=== PATIENT | male | born 1930 | race Caucasian/White ===

== ENCOUNTER → 2017-01-20 | Outpatient (CLI) | payer MEDICARE, BC ==
[~2017-01-20] MED LIST: ALBU1.25 NEB; ASPI-496 PO; ATOR40TA78 PO; BUDE10.2 INH; CEFD300C37 PO; DIGO0.25 PO; DIGO125T PO; DOXY100C2 PO; DOXY100T PO; DOXY50CA42 PO; ENAL2.5T32 PO; OMNIPAQUE 350 MG/ML, 100ML BOTTLE ONE; PRED10TA BC; PRED20TA PO; PRED5TAB PO; TAMS0.4C2 PO; TIOT18CA INH; WARF2TAB PO; WARF5TAB PO; WARF5TAB7 PO
== END | disposition home or self-care (01) ==
LOC: CFH 12:32
PROVIDERS: ATTEND Family Medicine
DX: I71.4 Abdominal aortic aneurysm, without rupture (principal); I72.3 Aneurysm of iliac artery; N28.1 Cyst of kidney, acquired; J44.9 Chronic obstructive pulmonary disease, unspecified
CPT/HCPCS: 74177; 82565; Q9967

== ENCOUNTER 2017-03-01 13:16 | Emergency (ER) | payer MEDICARE, BC ==
[~2017-03-01] VITALS: Ht 188 cm; Wt 67.2 kg
[~2017-03-01 13:16] MED LIST changes: -OMNIPAQUE 350 MG/ML, 100ML BOTTLE ONE
[2017-03-01 13:20] VITALS: BP 123/88
[2017-03-01] MEDS ORDERED: DIPH,PERTUSS(ACELL),TET VAC/PF 0.5 ML IM-VACC ONE ×2 (14:30→15:29)
[2017-03-01] MEDS ORDERED: BACITRACIN ZINC OINT 500U/GM, 0.9 GM ONE (14:36)
== END 2017-03-01 16:06 | disposition home or self-care (01) ==
LOC: ED 14:45
DX: S81.802A Unspecified open wound, left lower leg, initial encounter (principal); K21.9 Gastro-esophageal reflux disease without esophagitis; J44.9 Chronic obstructive pulmonary disease, unspecified; E78.5 Hyperlipidemia, unspecified; Z86.73 Personal history of transient ischemic attack (TIA), and cerebral infarction without residual deficits; Z88.5 Allergy status to narcotic agent; Z87.891 Personal history of nicotine dependence; W45.8XXA Other foreign body or object entering through skin, initial encounter; Y93.89 Activity, other specified; Y92.091 Bathroom in other non-institutional residence as the place of occurrence of the external cause; Y99.9 Unspecified external cause status
CPT/HCPCS: 90471; 90715

== ENCOUNTER 2017-03-07 11:34 | Emergency (ER) | payer MEDICARE, BC ==
[~2017-03-07] VITALS: Ht 188 cm; Wt 67.2 kg
[2017-03-07 11:35] VITALS: BP 119/78
[2017-03-07] MEDS ORDERED: BACITRACIN ZINC OINT 500U/GM, 0.9 GM ONE (12:26)
== END 2017-03-07 12:32 | disposition home or self-care (01) ==
LOC: ED 11:50
DX: S81.812D Laceration without foreign body, left lower leg, subsequent encounter (principal); J44.9 Chronic obstructive pulmonary disease, unspecified; K21.9 Gastro-esophageal reflux disease without esophagitis; Z87.891 Personal history of nicotine dependence; Z86.73 Personal history of transient ischemic attack (TIA), and cerebral infarction without residual deficits; X58.XXXD Exposure to other specified factors, subsequent encounter; Y92.89 Other specified places as the place of occurrence of the external cause; Y99.8 Other external cause status
CPT/HCPCS: 99283

== ENCOUNTER 2017-06-09 10:32 | Emergency (ER) | payer MEDICARE, BC ==
[~2017-06-09] VITALS: Ht 185.4 cm; Wt 68.2 kg
[2017-06-09] MEDS ORDERED: IPRA3AMP INH (11:41)
[2017-06-09] MEDS ORDERED: CHOL100012 PO (11:41)
[2017-06-09] MEDS ORDERED: BECL8.7A6 INH (11:41)
[2017-06-09] MEDS ORDERED: TIOT18CA INH (11:41)
[2017-06-09] MEDS ORDERED: SODIUM CHLORIDE FLUSH 10ML SYR IVF ONE (12:00)
[2017-06-09 12:25] LABS: HEMATOCRIT 39.7 % (39.2-51.8); HEMOGLOBIN 13.5 g/dL (13.7-18.0); WHITE BLOOD COUNT 4.8 x10^3/uL (3.4-10)
[2017-06-09 12:36] LABS: BLOOD UREA NITROGEN 37 mg/dL (7-18)
[2017-06-09 12:42] LABS: ASPARTATE AMINO TRANSFERASE 26 U/L (15-37)
[2017-06-09 12:43] LABS: IS PT STATUS REG ER OR PRE ER? YES
[2017-06-09 14:54] VITALS: BP 122/73
== END 2017-06-09 14:56 | disposition home or self-care (01) ==
LOC: ED 11:55
DX: R04.2 Hemoptysis (principal); K21.9 Gastro-esophageal reflux disease without esophagitis; E78.5 Hyperlipidemia, unspecified; J44.9 Chronic obstructive pulmonary disease, unspecified; Z86.73 Personal history of transient ischemic attack (TIA), and cerebral infarction without residual deficits; Z87.891 Personal history of nicotine dependence
CPT/HCPCS: 36415; 71020; 80053; 84484; 85025; 85610; 85730; 93005; 99285

== ENCOUNTER 2017-06-16 12:08 | Inpatient (IN) | payer MEDICARE, BC ==
[~2017-06-16] VITALS: Ht 188 cm; Wt 75.0 kg
[~2017-06-16 12:08] MED LIST changes: +BECL8.7A6 INH; +CHOL100012 PO; +IPRA3AMP INH
[2017-06-16] MEDS ORDERED: SODIUM CHLORIDE FLUSH 10ML SYR IVF ONE ×2 (13:00→15:00)
[2017-06-16 13:05] LABS: HEMATOCRIT 36.2 % (39.2-51.8); WHITE BLOOD COUNT 6.4 x10^3/uL (3.4-10)
[2017-06-16 13:17] LABS: ASPARTATE AMINO TRANSFERASE 29 U/L (15-37); BLOOD UREA NITROGEN 25 mg/dL (7-18)
[2017-06-16] MEDS ORDERED: PHYTONADIONE 10 MG in SODIUM CHLORIDE 0.9% 50 ML IV ONE (15:00)
[2017-06-16] MEDS ORDERED: CEFTRIAXONE PMX 2GM/50ML 50 ML IV SCH (15:00)
[2017-06-16] MEDS ORDERED: AZITHROMYCIN 500 MG in SODIUM CHLORIDE 0.9% 250 ML IV ONE (15:00)
[2017-06-16] MEDS ORDERED: methylPREDNISolone SOD SUCC 125 MG/2 ML IVPush ONE (15:00)
[2017-06-16] MEDS ORDERED: ALBUTEROL/IPRATROPIUM 2.5MG/0.5MG, 3 ML NPPB ONE (15:00)
[2017-06-16] MEDS ORDERED: methylPREDNISolone SOD SUCC 125 MG/2 ML ONE (15:27)
[2017-06-16] MEDS ORDERED: CEFTRIAXONE PMX 2GM/50ML 50 ML ONE (15:27)
[2017-06-16 16:04] VITALS: BP 124/72
[2017-06-16] MEDS ORDERED: ONDANSETRON ODT 4 MG PO PRN (18:00)
[2017-06-16] MEDS ORDERED: ONDANSETRON 2MG/ML, 2ML IVPush PRN (18:00)
[2017-06-16] MEDS: ALBUTEROL SULFATE 2.5 MG/3 ML NPPB SCH ×2 (18:30→21:00)
[2017-06-16 19:20] VITALS: BP 116/66
[2017-06-16] MEDS: SODIUM CHLORIDE 0.9% 1,000 ML IV SCH (20:27)
[2017-06-16] MEDS: TAMSULOSIN 0.4 MG CAP.ER.24H HOMEMEDPO SCH (21:00)
[2017-06-16] MEDS ORDERED: ATORVASTATIN 40 MG TABLET PO SCH (21:00)
[2017-06-16] MEDS: ATORVASTATIN 40 MG TABLET HOMEMEDPO SCH (21:00)
[2017-06-16] MEDS: CHOLECALCIFEROL 1,000 UNIT TABLET PO SCH (21:35)
[2017-06-17 00:38] VITALS: BP 103/59
[2017-06-17 05:23] LABS: ASPARTATE AMINO TRANSFERASE 21 U/L (15-37); BLOOD UREA NITROGEN 32 mg/dL (7-18)
[2017-06-17 05:24] LABS: HEMATOCRIT 28.1 % (39.2-51.8); HEMOGLOBIN 9.5 g/dL (13.7-18.0)
[2017-06-17] MEDS: SODIUM CHLORIDE 0.9% 1,000 ML IV SCH ×3 (05:57→23:36)
[2017-06-17] MEDS: ALBUTEROL SULFATE 2.5 MG/3 ML NPPB SCH ×4 (06:00→14:25)
[2017-06-17 07:41] VITALS: BP 117/56
[2017-06-17] MEDS ORDERED: FLUTICASONE FUROATE 100MCG/INH INH SCH (09:00)
[2017-06-17 12:13] VITALS: BP 101/56
[2017-06-17 20:12] VITALS: BP 94/49
[2017-06-17] MEDS: DIGOXIN 0.125 MG TABLET HOMEMEDPO SCH (21:00)
[2017-06-17] MEDS ORDERED: ASPIRIN 81 MG TABLET EC PO SCH (21:00)
[2017-06-17] MEDS: ATORVASTATIN 40 MG TABLET HOMEMEDPO SCH (21:00)
[2017-06-17] MEDS: SPIRIVA INH SCH (21:00)
[2017-06-17] MEDS ORDERED: TAMSULOSIN 0.4 MG CAP.ER.24H PO SCH (21:00)
[2017-06-17] MEDS: TAMSULOSIN 0.4 MG CAP.ER.24H HOMEMEDPO SCH (21:00)
[2017-06-17] MEDS: CHOLECALCIFEROL 1,000 UNIT TABLET PO SCH (21:26)
[2017-06-17] MEDS: DOXYCYCLINE 100MG TABLET PO SCH (21:27)
[2017-06-17 21:31] VITALS: BP 100/51
[2017-06-17] MEDS ORDERED: AZITHROMYCIN 500 MG TABLET PO SCH (22:00)
[2017-06-17] MEDS ORDERED: DOCUSATE 100 MG CAPSULE PO PRN (22:30)
[2017-06-18 02:07] VITALS: BP 112/56
[2017-06-18 06:19] LABS: HEMATOCRIT 28.6 % (39.2-51.8); HEMOGLOBIN 9.8 g/dL (13.7-18.0)
[2017-06-18 06:32] LABS: BLOOD UREA NITROGEN 33 mg/dL (7-18)
[2017-06-18] MEDS ORDERED: ALBUTEROL SULFATE 2.5 MG/3 ML NPPB SCH (07:00)
[2017-06-18 07:43] VITALS: BP 125/69
[2017-06-18] MEDS: SODIUM CHLORIDE 0.9% 1,000 ML IV SCH ×2 (09:25→21:05)
[2017-06-18] MEDS: DOXYCYCLINE 100MG TABLET PO SCH ×2 (09:25→21:06)
[2017-06-18] MEDS ORDERED: ALBUTEROL SULFATE 2.5 MG/3 ML ONE (13:58)
[2017-06-18] MEDS: ALBUTEROL SULFATE 2.5 MG/3 ML NPPB SCH ×2 (14:01→20:19)
[2017-06-18 14:16] VITALS: BP 107/62
[2017-06-18 20:00] VITALS: BP 107/61
[2017-06-18] MEDS: TAMSULOSIN 0.4 MG CAP.ER.24H HOMEMEDPO SCH (21:00)
[2017-06-18] MEDS: SPIRIVA INH SCH (21:00)
[2017-06-18] MEDS: DIGOXIN 0.125 MG TABLET HOMEMEDPO SCH (21:00)
[2017-06-18] MEDS: ATORVASTATIN 40 MG TABLET HOMEMEDPO SCH (21:00)
[2017-06-18] MEDS: CHOLECALCIFEROL 1,000 UNIT TABLET PO SCH (21:06)
[2017-06-19 02:00] VITALS: BP 118/67
[2017-06-19] MEDS: SODIUM CHLORIDE 0.9% 1,000 ML IV SCH ×2 (05:25→15:52)
[2017-06-19] MEDS: ALBUTEROL SULFATE 2.5 MG/3 ML NPPB SCH ×3 (06:56→19:29)
[2017-06-19 07:59] VITALS: BP 120/68
[2017-06-19] MEDS: DOXYCYCLINE 100MG TABLET PO SCH ×2 (08:59→22:08)
[2017-06-19] MEDS: DIGOXIN 0.125 MG TABLET HOMEMEDPO SCH (08:59)
[2017-06-19 12:39] VITALS: BP 128/74
[2017-06-19 20:14] VITALS: BP 107/55
[2017-06-19] MEDS: CHOLECALCIFEROL 1,000 UNIT TABLET PO SCH (22:08)
[2017-06-19] MEDS: TAMSULOSIN 0.4 MG CAP.ER.24H HOMEMEDPO SCH (22:11)
[2017-06-19] MEDS: ATORVASTATIN 40 MG TABLET HOMEMEDPO SCH (22:15)
[2017-06-19] MEDS: SPIRIVA INH SCH (22:17)
[2017-06-20 00:52] VITALS: BP 114/58
[2017-06-20] MEDS: SODIUM CHLORIDE 0.9% 1,000 ML IV SCH ×3 (02:56→22:32)
[2017-06-20] MEDS: ALBUTEROL SULFATE 2.5 MG/3 ML NPPB SCH ×3 (06:50→20:40)
[2017-06-20 07:49] VITALS: BP 112/57
[2017-06-20] MEDS: DIGOXIN 0.125 MG TABLET HOMEMEDPO SCH (09:00)
[2017-06-20] MEDS: DOXYCYCLINE 100MG TABLET PO SCH ×2 (09:14→22:34)
[2017-06-20 14:26] VITALS: BP 116/62
[2017-06-20] MEDS: ACETAMINOPHEN 325 MG TABLET PO PRN (15:01)
[2017-06-20 19:46] VITALS: BP 120/65
[2017-06-20] MEDS: GUAIFENESIN ER 600 MG TABLET PO SCH (22:33)
[2017-06-20] MEDS: CHOLECALCIFEROL 1,000 UNIT TABLET PO SCH (22:33)
[2017-06-20] MEDS: DIGOXIN 0.125 MG TABLET PO SCH (22:34)
[2017-06-20] MEDS: TAMSULOSIN 0.4 MG CAP.ER.24H HOMEMEDPO SCH (22:35)
[2017-06-20] MEDS: ATORVASTATIN 40 MG TABLET HOMEMEDPO SCH (22:36)
[2017-06-20] MEDS: SPIRIVA INH SCH (22:37)
[2017-06-21] MEDS: ACETAMINOPHEN 325 MG TABLET PO PRN (00:49)
[2017-06-21 02:00] VITALS: BP 115/61
[2017-06-21 05:16] LABS: HEMATOCRIT 27.6 % (39.2-51.8); HEMOGLOBIN 9.3 g/dL (13.7-18.0); WHITE BLOOD COUNT 3.9 x10^3/uL (3.4-10)
[2017-06-21 05:29] LABS: BLOOD UREA NITROGEN 21 mg/dL (7-18)
[2017-06-21 07:06] VITALS: BP 124/71
[2017-06-21] MEDS: SODIUM CHLORIDE 0.9% 1,000 ML IV SCH (08:31)
[2017-06-21] MEDS: DOXYCYCLINE 100MG TABLET PO SCH (08:31)
[2017-06-21] MEDS: GUAIFENESIN ER 600 MG TABLET PO SCH ×2 (08:31→21:34)
[2017-06-21] MEDS: ALBUTEROL SULFATE 2.5 MG/3 ML NPPB SCH ×3 (09:00→21:00)
[2017-06-21] MEDS: AMOXICILLIN/CLAV 875-125MG TABLET PO SCH ×2 (12:58→23:18)
[2017-06-21 14:33] VITALS: BP 104/61
[2017-06-21] MEDS ORDERED: WARFARIN 5 MG TABLET PO-COUM ONE (18:00)
[2017-06-21 20:00] VITALS: BP 105/65
[2017-06-21] MEDS: DIGOXIN 0.125 MG TABLET PO SCH (21:00)
[2017-06-21] MEDS: TAMSULOSIN 0.4 MG CAP.ER.24H HOMEMEDPO SCH (21:33)
[2017-06-21] MEDS: ATORVASTATIN 40 MG TABLET HOMEMEDPO SCH (21:34)
[2017-06-21] MEDS: CHOLECALCIFEROL 1,000 UNIT TABLET PO SCH (21:34)
[2017-06-21] MEDS: SPIRIVA INH SCH (21:35)
[2017-06-22] MEDS: ACETAMINOPHEN 325 MG TABLET PO PRN (01:52)
[2017-06-22 02:00] VITALS: BP 105/58
[2017-06-22 05:35] LABS: HEMATOCRIT 27.5 % (39.2-51.8); HEMOGLOBIN 9.4 g/dL (13.7-18.0); WHITE BLOOD COUNT 4.3 x10^3/uL (3.4-10)
[2017-06-22] MEDS: ALBUTEROL SULFATE 2.5 MG/3 ML NPPB SCH (07:42)
[2017-06-22] MEDS: GUAIFENESIN ER 600 MG TABLET PO SCH (08:10)
[2017-06-22 08:18] VITALS: BP 118/67
[2017-06-22] MEDS ORDERED: AMOX1TAB12 PO (11:19)
[2017-06-22] MEDS ORDERED: FUROSEMIDE 20 MG TABLET PO ONE (11:30)
[2017-06-22] MEDS ORDERED: FUROSEMIDE 20 MG/2 ML IV ONE (11:30)
[2017-06-22] MEDS ORDERED: ENOX60SY4 SC (11:45)
[2017-06-22] MEDS ORDERED: ENOXAPARIN 80 MG/0.8 ML SQ SCH (12:00)
[2017-06-22] MEDS ORDERED: WARFARIN 5 MG TABLET PO-COUM ONE (18:00)
== END 2017-06-22 12:50 | disposition home or self-care (01) | DRG 177 ==
LOC: ED 14:52 → EDIP 16:31 → 4WST 17:50
PROVIDERS: ADMIT Internal Medicine; ATTEND Internal Medicine
PROC: 30233K1 Transfusion of Nonautologous Frozen Plasma into Peripheral Vein, Percutaneous Approach (ICD-10-PCS; principal; 2017-06-16)
DX: J69.0 Pneumonitis due to inhalation of food and vomit (principal); E43 Unspecified severe protein-calorie malnutrition; J96.20 Acute and chronic respiratory failure, unspecified whether with hypoxia or hypercapnia; D68.59 Other primary thrombophilia; D80.3 Selective deficiency of immunoglobulin G [IgG] subclasses; I48.1 Persistent atrial fibrillation; I13.0 Hypertensive heart and chronic kidney disease with heart failure and stage 1 through stage 4 chronic kidney disease, or unspecified chronic kidney disease; I50.32 Chronic diastolic (congestive) heart failure; J44.0 Chronic obstructive pulmonary disease with (acute) lower respiratory infection; J44.1 Chronic obstructive pulmonary disease with (acute) exacerbation; E78.5 Hyperlipidemia, unspecified; K21.9 Gastro-esophageal reflux disease without esophagitis; N18.3 Chronic kidney disease, stage 3 (moderate); J15.9 Unspecified bacterial pneumonia; N40.0 Benign prostatic hyperplasia without lower urinary tract symptoms; I34.0 Nonrheumatic mitral (valve) insufficiency; I35.0 Nonrheumatic aortic (valve) stenosis; Z79.01 Long term (current) use of anticoagulants; Z80.6 Family history of leukemia; Z85.828 Personal history of other malignant neoplasm of skin; Z86.73 Personal history of transient ischemic attack (TIA), and cerebral infarction without residual deficits; Z87.891 Personal history of nicotine dependence; Z99.81 Dependence on supplemental oxygen; Z87.01 Personal history of pneumonia (recurrent); Z68.21 Body mass index [BMI] 21.0-21.9, adult; Z90.49 Acquired absence of other specified parts of digestive tract; Z90.89 Acquired absence of other organs; Z98.42 Cataract extraction status, left eye; Z98.41 Cataract extraction status, right eye; Z88.5 Allergy status to narcotic agent
CPT/HCPCS: 36415; 36430; 70551; 71010; 71250; 74230; 80048; 80053; 80162; 81001; 82962; 83516; 83519; 83605; 83735; 84100; 84145; 85025; 85610; 86850; 86900; 87040; 87070; 87086; 87205; 93005; 93306; 94640; 96365; 96375; J0456; J0696; J1650; J3430; J7613; J1940; J2930; J7030; J7050; P9017

== ENCOUNTER 2017-06-30 13:16 | Inpatient (IN) | payer MEDICARE, BC ==
[2017-06-30] VITALS (18 sets, daily range): BP systolic 98–120; BP diastolic 43–68
[~2017-06-30] VITALS: Ht 185.4 cm; Wt 60.2 kg
[~2017-06-30 13:16] MED LIST changes: +AMOX1TAB12 PO; +ENOX60SY4 SC
[2017-06-30] MEDS ORDERED: SODIUM CHLORIDE FLUSH 10ML SYR IVF ONE (13:30)
[2017-06-30] MEDS ORDERED: PLEASE ENTER HEIGHT AND WEIGHT MC SCH (14:00)
[2017-06-30 14:15] LABS: BLOOD UREA NITROGEN 34 mg/dL (7-18)
[2017-06-30 14:24] LABS: HEMOGLOBIN 7.4 g/dL (13.7-18.0); WHITE BLOOD COUNT 5.4 x10^3/uL (3.4-10)
[2017-06-30 14:26] LABS: HEMATOCRIT 22.3 % (39.2-51.8)
[2017-06-30] MEDS ORDERED: ALBUTEROL/IPRATROPIUM 2.5MG/0.5MG, 3 ML NEB PRN (16:00)
[2017-06-30] MEDS ORDERED: LABETALOL 5MG/ML, 20ML IVPush PRN (16:00)
[2017-06-30] MEDS ORDERED: PHARMACY MAY ADJ FOR RENAL FX MC PRN (16:00)
[2017-06-30] MEDS ORDERED: ONDANSETRON 2MG/ML, 2ML IVPush PRN (16:00)
[2017-06-30] MEDS ORDERED: morphine SULFATE 10 MG/ML, 1ML IVPush PRN (16:00)
[2017-06-30] MEDS ORDERED: ONDANSETRON ODT 4 MG PO PRN (16:00)
[2017-06-30] MEDS ORDERED: POLYETHYLENE GLYCOL 17 GM PACKET PO PRN (16:00)
[2017-06-30] MEDS ORDERED: HYDROcodone/APAP 5/325 TABLET PO PRN (16:00)
[2017-06-30] MEDS ORDERED: ALBUTEROL/IPRATROPIUM 2.5MG/0.5MG, 3 ML ONE (16:56)
[2017-06-30] MEDS: ALBUTEROL/IPRATROPIUM 2.5MG/0.5MG, 3 ML NPPB SCH ×2 (17:04→22:00)
[2017-06-30] MEDS ORDERED: ALBUTEROL SULFATE 2.5 MG/3 ML NPPB PRN (18:30)
[2017-06-30] MEDS ORDERED: IPRATROPIUM 0.5 MG/2.5 ML INHA HHN SCH (18:30)
[2017-06-30] MEDS ORDERED: FURO-93 PO (18:32)
[2017-06-30] MEDS ORDERED: POTA10TA6 PO (18:32)
[2017-06-30] MEDS ORDERED: FUROSEMIDE 20 MG/2 ML IVPush PRN ×2 (19:00)
[2017-06-30] MEDS ORDERED: ATORVASTATIN 40 MG TABLET PO SCH (21:00)
[2017-06-30] MEDS: TAMSULOSIN 0.4 MG CAP.ER.24H HOMEMEDPO SCH (21:42)
[2017-06-30] MEDS: ATORVASTATIN 40 MG TABLET HOMEMEDPO SCH (21:42)
[2017-06-30] MEDS: CHOLECALCIFEROL 1,000 UNIT TABLET PO SCH (21:42)
[2017-06-30] MEDS: FAMOTIDINE 20 MG/2 ML IVPush SCH (21:43)
[2017-06-30] MEDS: QVAR HOMEINH SCH (21:44)
[2017-06-30] MEDS: SPIRIVA HOMEINH SCH (21:44)
[2017-06-30] MEDS: DIGOXIN 0.125 MG TABLET HOMEMEDPO SCH (21:47)
[2017-07-01] VITALS (16 sets, daily range): BP systolic 84–135; BP diastolic 48–74
[2017-07-01] MEDS: PIPERACILLIN/TAZO/PMX 3.375GM 50 ML IV SCH ×2 (01:52→08:07)
[2017-07-01] MEDS: ALBUTEROL/IPRATROPIUM 2.5MG/0.5MG, 3 ML NPPB SCH ×5 (05:25→22:00)
[2017-07-01 07:55] LABS: HEMATOCRIT 23.5 % (39.2-51.8); HEMOGLOBIN 7.9 g/dL (13.7-18.0); WHITE BLOOD COUNT 3.6 x10^3/uL (3.4-10)
[2017-07-01 08:00] LABS: ASPARTATE AMINO TRANSFERASE 28 U/L (15-37); BLOOD UREA NITROGEN 34 mg/dL (7-18)
[2017-07-01] MEDS: FAMOTIDINE 20 MG/2 ML IVPush SCH ×2 (08:06→21:40)
[2017-07-01] MEDS: SENNA/DOCUSATE TABLET PO SCH (08:06)
[2017-07-01] MEDS: QVAR HOMEINH SCH ×2 (08:09→21:00)
[2017-07-01] MEDS ORDERED: DIGOXIN 0.125 MG TABLET PO SCH (09:00)
[2017-07-01] MEDS ORDERED: DIGOXIN 0.125 MG TABLET HOMEMEDPO SCH (09:00)
[2017-07-01] MEDS ORDERED: TAMSULOSIN 0.4 MG CAP.ER.24H PO SCH (09:00)
[2017-07-01] MEDS ORDERED: SPIRIVA HOMEINH SCH (09:00)
[2017-07-01] MEDS ORDERED: CHOLECALCIFEROL 1,000 UNIT TABLET PO SCH ×2 (09:00)
[2017-07-01] MEDS ORDERED: TAMSULOSIN 0.4 MG CAP.ER.24H HOMEMEDPO SCH (09:00)
[2017-07-01] MEDS ORDERED: D5%-0.45% NACL 1,000 ML IV SCH (11:30)
[2017-07-01] MEDS ORDERED: LIDOCAINE GEL 2%, 5ML ONE (12:00)
[2017-07-01] MEDS ORDERED: LIDOCAINE 4% TOPICAL SOLUTION 50 ML ONE (12:00)
[2017-07-01] MEDS ORDERED: LIDOCAINE 1%, 50ML ONE (12:00)
[2017-07-01] MEDS ORDERED: MIDAZOLAM 1 MG/ML, 5ML ONE (12:44)
[2017-07-01] MEDS ORDERED: FENTANYL PF 100 MCG/2ML ONE (12:44)
[2017-07-01] MEDS: ATORVASTATIN 40 MG TABLET HOMEMEDPO SCH (21:00)
[2017-07-01] MEDS: SPIRIVA HOMEINH SCH (21:00)
[2017-07-01] MEDS: TAMSULOSIN 0.4 MG CAP.ER.24H HOMEMEDPO SCH (21:00)
[2017-07-01] MEDS: DIGOXIN 0.125 MG TABLET HOMEMEDPO SCH (21:00)
[2017-07-01 21:33] LABS: OCCBLD OBC PASS
[2017-07-01] MEDS: DOXYCYCLINE 100MG TABLET PO SCH (21:40)
[2017-07-01] MEDS: CHOLECALCIFEROL 1,000 UNIT TABLET PO SCH (21:40)
[2017-07-02 00:05] VITALS: BP 137/70
[2017-07-02 05:37] LABS: BLOOD UREA NITROGEN 29 mg/dL (7-18); HEMATOCRIT 23.6 % (39.2-51.8); HEMOGLOBIN 7.9 g/dL (13.7-18.0); WHITE BLOOD COUNT 3.5 x10^3/uL (3.4-10)
[2017-07-02] MEDS: ALBUTEROL/IPRATROPIUM 2.5MG/0.5MG, 3 ML NPPB SCH ×5 (07:30→22:14)
[2017-07-02] MEDS: QVAR HOMEINH SCH ×2 (07:57→21:00)
[2017-07-02] MEDS: FAMOTIDINE 20 MG/2 ML IVPush SCH (07:57)
[2017-07-02] MEDS: DOXYCYCLINE 100MG TABLET PO SCH ×2 (07:57→21:05)
[2017-07-02] MEDS: SENNA/DOCUSATE TABLET PO SCH (07:57)
[2017-07-02 08:16] VITALS: BP 120/59
[2017-07-02] MEDS ORDERED: FUROSEMIDE 20 MG/2 ML IV ONE (08:30)
[2017-07-02 14:00] VITALS: BP 95/56
[2017-07-02 20:12] VITALS: BP 106/70
[2017-07-02] MEDS: ATORVASTATIN 40 MG TABLET HOMEMEDPO SCH (21:00)
[2017-07-02] MEDS: TAMSULOSIN 0.4 MG CAP.ER.24H HOMEMEDPO SCH (21:00)
[2017-07-02] MEDS: SPIRIVA HOMEINH SCH (21:00)
[2017-07-02] MEDS: DIGOXIN 0.125 MG TABLET HOMEMEDPO SCH (21:00)
[2017-07-02] MEDS: CHOLECALCIFEROL 1,000 UNIT TABLET PO SCH (21:05)
[2017-07-03] VITALS (7 sets, daily range): BP systolic 96–120; BP diastolic 57–71
[2017-07-03] MEDS ORDERED: ALBUTEROL SULFATE 2.5 MG/3 ML NPPB PRN (04:00)
[2017-07-03] MEDS: ALBUTEROL/IPRATROPIUM 2.5MG/0.5MG, 3 ML NPPB SCH ×5 (06:00→23:30)
[2017-07-03 06:11] LABS: HEMOGLOBIN 7.6 g/dL (13.7-18.0); WHITE BLOOD COUNT 3.8 x10^3/uL (3.4-10)
[2017-07-03 06:18] LABS: HEMATOCRIT 22.5 % (39.2-51.8)
[2017-07-03 06:36] LABS: ASPARTATE AMINO TRANSFERASE 21 U/L (15-37); BLOOD UREA NITROGEN 30 mg/dL (7-18)
[2017-07-03 06:40] LABS: DIFF TOTAL CELLS COUNTED 100 CELL DIFF
[2017-07-03 06:42] LABS: VERIFY COUNTS? YES
[2017-07-03] MEDS: QVAR HOMEINH SCH ×2 (09:00→21:00)
[2017-07-03] MEDS: SENNA/DOCUSATE TABLET PO SCH (09:29)
[2017-07-03] MEDS: DOXYCYCLINE 100MG TABLET PO SCH ×2 (09:29→20:57)
[2017-07-03] MEDS: FUROSEMIDE 20 MG/2 ML IV SCH ×2 (09:29→18:19)
[2017-07-03] MEDS: POTASSIUM CHLORIDE 20 MEQ TAB.ER.PRT PO SCH (18:19)
[2017-07-03] MEDS: CHOLECALCIFEROL 1,000 UNIT TABLET PO SCH (20:57)
[2017-07-03] MEDS: ATORVASTATIN 40 MG TABLET HOMEMEDPO SCH (21:00)
[2017-07-03] MEDS: SPIRIVA HOMEINH SCH (21:00)
[2017-07-03] MEDS: DIGOXIN 0.125 MG TABLET HOMEMEDPO SCH (21:00)
[2017-07-03] MEDS: TAMSULOSIN 0.4 MG CAP.ER.24H HOMEMEDPO SCH (21:00)
[2017-07-04 02:44] VITALS: BP 113/68
[2017-07-04] MEDS: ALBUTEROL/IPRATROPIUM 2.5MG/0.5MG, 3 ML NPPB SCH ×5 (06:00→23:15)
[2017-07-04 06:15] LABS: BLOOD UREA NITROGEN 35 mg/dL (7-18)
[2017-07-04 06:21] LABS: HEMATOCRIT 27.6 % (39.2-51.8); HEMOGLOBIN 9.3 g/dL (13.7-18.0); WHITE BLOOD COUNT 4.3 x10^3/uL (3.4-10)
[2017-07-04 07:40] VITALS: BP 111/68
[2017-07-04] MEDS: FUROSEMIDE 20 MG/2 ML IV SCH ×2 (08:42→20:15)
[2017-07-04] MEDS: SENNA/DOCUSATE TABLET PO SCH (08:42)
[2017-07-04] MEDS: QVAR HOMEINH SCH ×2 (08:42→20:15)
[2017-07-04] MEDS: POTASSIUM CHLORIDE 20 MEQ TAB.ER.PRT PO SCH ×3 (08:42→20:15)
[2017-07-04] MEDS: DOXYCYCLINE 100MG TABLET PO SCH ×2 (08:46→20:15)
[2017-07-04 13:32] VITALS: BP 100/63
[2017-07-04 19:00] VITALS: BP 108/63
[2017-07-04] MEDS: CHOLECALCIFEROL 1,000 UNIT TABLET PO SCH (20:15)
[2017-07-04] MEDS: SPIRIVA HOMEINH SCH (20:16)
[2017-07-04] MEDS: TAMSULOSIN 0.4 MG CAP.ER.24H HOMEMEDPO SCH (20:16)
[2017-07-04] MEDS: DIGOXIN 0.125 MG TABLET HOMEMEDPO SCH (20:17)
[2017-07-04] MEDS: ATORVASTATIN 40 MG TABLET HOMEMEDPO SCH (20:18)
[2017-07-05 01:09] VITALS: BP 113/63
[2017-07-05 05:39] LABS: HEMATOCRIT 28.3 % (39.2-51.8); HEMOGLOBIN 9.5 g/dL (13.7-18.0); WHITE BLOOD COUNT 4.3 x10^3/uL (3.4-10)
[2017-07-05 06:43] LABS: ASPARTATE AMINO TRANSFERASE 16 U/L (15-37); BLOOD UREA NITROGEN 38 mg/dL (7-18)
[2017-07-05] MEDS: ALBUTEROL/IPRATROPIUM 2.5MG/0.5MG, 3 ML NPPB SCH ×2 (06:45→10:13)
[2017-07-05 08:07] VITALS: BP 102/63
[2017-07-05] MEDS: FUROSEMIDE 20 MG/2 ML IV SCH (10:02)
[2017-07-05] MEDS: DOXYCYCLINE 100MG TABLET PO SCH (10:02)
[2017-07-05] MEDS: POTASSIUM CHLORIDE 20 MEQ TAB.ER.PRT PO SCH ×2 (10:02→13:57)
[2017-07-05] MEDS: QVAR HOMEINH SCH (10:03)
[2017-07-05] MEDS: SENNA/DOCUSATE TABLET PO SCH (10:03)
[2017-07-05 13:25] VITALS: BP 107/56
[2017-07-05] MEDS ORDERED: ATOR40TA78 HOMEMEDPO (14:02)
[2017-07-05] MEDS ORDERED: CHOL10003 PO (14:02)
[2017-07-05] MEDS ORDERED: DOXY100T PO (14:02)
== END 2017-07-05 16:30 | disposition home or self-care (01) | DRG 166 ==
LOC: ED 15:33 → EDIP 15:34 → ED 16:10 → 4EST 18:09
PROVIDERS: ADMIT Hospitalist; ATTEND Hospitalist
PROC: 30233L1 Transfusion of Nonautologous Fresh Plasma into Peripheral Vein, Percutaneous Approach (ICD-10-PCS; principal; 2017-06-30)
PROC: 30233N1 Transfusion of Nonautologous Red Blood Cells into Peripheral Vein, Percutaneous Approach (ICD-10-PCS; 2017-06-30)
PROC: 30233K1 Transfusion of Nonautologous Frozen Plasma into Peripheral Vein, Percutaneous Approach (ICD-10-PCS; 2017-06-30)
PROC: 0B9J8ZZ Drainage of Left Lower Lung Lobe, Via Natural or Artificial Opening Endoscopic (ICD-10-PCS; 2017-07-01)
PROC: 0B9C8ZZ Drainage of Right Upper Lung Lobe, Via Natural or Artificial Opening Endoscopic (ICD-10-PCS; 2017-07-01)
PROC: 0B9G8ZZ Drainage of Left Upper Lung Lobe, Via Natural or Artificial Opening Endoscopic (ICD-10-PCS; 2017-07-01)
PROC: 0B9D8ZZ Drainage of Right Middle Lung Lobe, Via Natural or Artificial Opening Endoscopic (ICD-10-PCS; 2017-07-01)
PROC: 0B9F8ZZ Drainage of Right Lower Lung Lobe, Via Natural or Artificial Opening Endoscopic (ICD-10-PCS; 2017-07-01)
DX: J96.01 Acute respiratory failure with hypoxia (principal); J18.9 Pneumonia, unspecified organism; N17.9 Acute kidney failure, unspecified; D68.32 Hemorrhagic disorder due to extrinsic circulating anticoagulants; D68.69 Other thrombophilia; D62 Acute posthemorrhagic anemia; D80.3 Selective deficiency of immunoglobulin G [IgG] subclasses; E44.1 Mild protein-calorie malnutrition; I48.2 Chronic atrial fibrillation; R04.2 Hemoptysis; I48.92 Unspecified atrial flutter; I50.30 Unspecified diastolic (congestive) heart failure; M19.90 Unspecified osteoarthritis, unspecified site; E78.5 Hyperlipidemia, unspecified; J43.9 Emphysema, unspecified; K21.9 Gastro-esophageal reflux disease without esophagitis; N18.3 Chronic kidney disease, stage 3 (moderate); N40.0 Benign prostatic hyperplasia without lower urinary tract symptoms; Z79.01 Long term (current) use of anticoagulants; Z80.6 Family history of leukemia; Z82.0 Family history of epilepsy and other diseases of the nervous system; Z85.828 Personal history of other malignant neoplasm of skin; Z86.73 Personal history of transient ischemic attack (TIA), and cerebral infarction without residual deficits; Z87.891 Personal history of nicotine dependence; Z99.81 Dependence on supplemental oxygen; Z79.899 Other long term (current) drug therapy; Z90.49 Acquired absence of other specified parts of digestive tract; Z98.42 Cataract extraction status, left eye; Z98.41 Cataract extraction status, right eye; Z79.82 Long term (current) use of aspirin; Z88.8 Allergy status to other drugs, medicaments and biological substances; T45.515A Adverse effect of anticoagulants, initial encounter
CPT/HCPCS: 31622; 36415; 36430; 71010; 71250; 80048; 80053; 82040; 82272; 82962; 83735; 84439; 84443; 85025; 85610; 86850; 86900; 86923; 87040; 87070; 87205; 93005; 94640; J2543; J3490; J7613; J7620; J1940; P9016; P9017; S0028

== ENCOUNTER → 2017-08-19 | Outpatient (CLI) | payer MEDICARE, BC ==
[~2017-08-19] MED LIST changes: +ATOR40TA78 HOMEMEDPO; +CHOL10003 PO; +FURO-93 PO; +POTA10TA6 PO
== END | disposition home or self-care (01) ==
LOC: CFH 15:26
PROVIDERS: ATTEND Internal Medicine Critical Care Medicine
DX: J18.9 Pneumonia, unspecified organism (principal); J43.2 Centrilobular emphysema; J98.11 Atelectasis; R91.8 Other nonspecific abnormal finding of lung field
CPT/HCPCS: 71250

== ENCOUNTER 2017-08-27 08:10 | Emergency (ER) | payer MEDICARE, BC ==
[~2017-08-27] VITALS: Ht 185.4 cm; Wt 62.7 kg
[2017-08-27] MEDS ORDERED: DIAZEPAM 5 MG TABLET ONE (08:45)
[2017-08-27] MEDS ORDERED: ALBUTEROL/IPRATROPIUM 2.5MG/0.5MG, 3 ML ONE (08:49)
[2017-08-27] MEDS ORDERED: DIAZEPAM 5 MG TABLET PO ONE (09:00)
[2017-08-27] MEDS ORDERED: ALBUTEROL/IPRATROPIUM 2.5MG/0.5MG, 3 ML NPPB ONE (09:00)
[2017-08-27] MEDS ORDERED: LIDOCAINE GEL 2%, 5ML ONE (09:40)
[2017-08-27] MEDS ORDERED: BACITRACIN ZINC OINT 500U/GM, 0.9 GM ONE (09:59)
[2017-08-27] MEDS ORDERED: LIDOCAINE GEL 2%, 5ML TP ONE (10:00)
[2017-08-27 13:22] VITALS: BP 148/82
== END 2017-08-27 13:24 | disposition home or self-care (01) ==
LOC: ED 10:21
DX: S51.802A Unspecified open wound of left forearm, initial encounter (principal); S51.801A Unspecified open wound of right forearm, initial encounter; J44.9 Chronic obstructive pulmonary disease, unspecified; I48.91 Unspecified atrial fibrillation; Y08.89XA Assault by other specified means, initial encounter; Y93.89 Activity, other specified; Y92.009 Unspecified place in unspecified non-institutional (private) residence as the place of occurrence of the external cause; Y99.9 Unspecified external cause status
CPT/HCPCS: 94640; 99283

== ENCOUNTER 2017-10-09 08:01 | Day surgery (SDC) | payer MEDICARE, BC ==
[2017-10-06 13:34] LABS: BASOPHILS # (AUTO) 0.01 x10^3/uL (0-0.1); BASOPHILS % (AUTO) 0 % (0-1); EOSINOPHILS # (AUTO) 0.05 x10^3/uL (0-0.4); EOSINOPHILS % (AUTO) 1 % (1-7); LYMPHOCYTES # (AUTO) 0.81 x10^3/uL (1-3.4); LYMPHOCYTES % (AUTO) 10 % (22-44); MD NO; MEAN CORPUSCULAR HEMOGLOBIN 26.9 pg (27.5-34.5); MEAN CORPUSCULAR HGB CONC 32.9 g/dL (33.2-36.2); MEAN CORPUSCULAR VOLUME 81.8 fL (81-97); MEAN PLATELET VOLUME 7.7 fL (7.4-10.4); MONOCYTES # (AUTO) 0.37 x10^3/uL (0.2-0.8); MONOCYTES % (AUTO) 5 % (2-9); NEUTROPHILS # (AUTO) 6.79 x10^3/uL (1.8-6.8); NEUTROPHILS % (AUTO) 85 % (42-75); PLATELET COUNT 275 x10^3/uL (130-400); RED BLOOD COUNT 4.61 x10^6/uL (4.38-5.82); RED CELL DISTRIBUTION WIDTH 16.6 % (9.4-14.8)
[2017-10-06 13:43] LABS: INTERNATIONAL NORMALIZED RATIO 1.03 (0.93-1.1); PROTHROMBIN TIME 10.7 Seconds (9.6-11.5)
[~2017-10-09] VITALS: Ht 188 cm; Wt 64.0 kg
[~2017-10-09 08:01] MED LIST changes: +DUTA1CPM4 PO; +GABA100C PO; +IPRA4AER INH; +OXYB5TAB7 PO; +WARF-36 PO; -WARF5TAB7 PO
[2017-10-09 08:53] VITALS: BP 103/67
[2017-10-09] MEDS ORDERED: LACTATED RINGERS 1,000 ML IV SCH (08:57)
[2017-10-09] MEDS ORDERED: LIDOCAINE-MPF 1%, 2ML INFIL ONE (09:00)
[2017-10-09] MEDS ORDERED: FENTANYL PF 100 MCG/2ML ONE (10:39)
[2017-10-09] MEDS ORDERED: MIDAZOLAM 1 MG/ML, 5ML ONE (10:39)
[2017-10-09] MEDS ORDERED: ALBUTEROL SULFATE 2.5 MG/3 ML ONE (11:18)
[2017-10-09] MEDS ORDERED: LIDOCAINE 4% TOPICAL SOLUTION 50 ML ONE (12:00)
[2017-10-09] MEDS ORDERED: LIDOCAINE 2%, 20ML ONE (12:00)
[2017-10-09] MEDS ORDERED: LIDOCAINE GEL 2%, 5ML ONE (12:00)
== END 2017-10-09 15:00 | disposition home or self-care (01) ==
LOC: OUT 08:01
PROVIDERS: ATTEND Internal Medicine Critical Care Medicine
DX: J42 Unspecified chronic bronchitis (principal); J20.9 Acute bronchitis, unspecified; R04.2 Hemoptysis; Z86.73 Personal history of transient ischemic attack (TIA), and cerebral infarction without residual deficits
CPT/HCPCS: 31623; 31624; 36415; 85025; 85610; 85730; 87015; 87070; 87102; 87116; 87184; 87205; 87206; 88104; 88112; 88305; 88312; 94640; 99152; 99153; J2250; J3010; J3490; J7120

== ENCOUNTER 2017-10-20 23:06 | Emergency (ER) | payer MEDICARE, BC ==
[~2017-10-20] VITALS: Ht 188 cm; Wt 65.1 kg
[2017-10-21] MEDS ORDERED: SODIUM CHLORIDE FLUSH 10ML SYR IVF ONE (00:30)
[2017-10-21] MEDS ORDERED: DICYCLOMINE 20 MG TABLET ONE (00:30)
[2017-10-21] MEDS ORDERED: DICYCLOMINE 20 MG TABLET PO ONE (00:30)
[2017-10-21] MEDS ORDERED: ONDANSETRON 2MG/ML, 2ML IVPush ONE (00:30)
[2017-10-21] MEDS ORDERED: ONDANSETRON ODT 4 MG PO ONE (00:30)
[2017-10-21] MEDS ORDERED: ONDANSETRON ODT 4 MG ONE (00:30)
[2017-10-21 00:35] LABS: BASOPHILS # (AUTO) 0.04 x10^3/uL (0-0.1); BASOPHILS % (AUTO) 0 % (0-1); EOSINOPHILS # (AUTO) 0.05 x10^3/uL (0-0.4); EOSINOPHILS % (AUTO) 1 % (1-7); LYMPHOCYTES # (AUTO) 0.32 x10^3/uL (1-3.4); LYMPHOCYTES % (AUTO) 4 % (22-44); MD NO; MEAN CORPUSCULAR HEMOGLOBIN 26.6 pg (27.5-34.5); MEAN CORPUSCULAR HGB CONC 32.5 g/dL (33.2-36.2); MEAN CORPUSCULAR VOLUME 81.8 fL (81-97); MEAN PLATELET VOLUME 7.7 fL (7.4-10.4); MONOCYTES # (AUTO) 0.14 x10^3/uL (0.2-0.8); MONOCYTES % (AUTO) 2 % (2-9); NEUTROPHILS # (AUTO) 8.07 x10^3/uL (1.8-6.8); NEUTROPHILS % (AUTO) 94 % (42-75); PLATELET COUNT 319 x10^3/uL (130-400); RED BLOOD COUNT 4.79 x10^6/uL (4.38-5.82); RED CELL DISTRIBUTION WIDTH 17.9 % (9.4-14.8)
[2017-10-21 00:42] LABS: ALANINE AMINOTRANSFERASE 18 U/L (12-78); ALBUMIN 3.2 g/dL (3.4-5.0); ANION GAP 7 mmol/L (5-15); CALCIUM 9.4 mg/dL (8.5-10.1); CHLORIDE 108 mmol/L (98-107); CREATININE 1.34 mg/dL (0.7-1.3)
[2017-10-21 00:45] LABS: ALKALINE PHOSPHATASE 164 U/L (45-117); BILIRUBIN,TOTAL 0.5 mg/dL (0.2-1.0); TOTAL PROTEIN 7.7 g/dL (6.4-8.2)
[2017-10-21] MEDS ORDERED: OMNIPAQUE 350 MG/ML, 100ML BOTTLE ONE (01:17)
[2017-10-21 02:19] LABS: CULTURE INDICATED? YES; MICROSCOPIC INDICATED
[2017-10-21] MEDS ORDERED: METOCLOPRAMIDE 5 MG/ML, 2ML ONE (03:09)
[2017-10-21 03:14] VITALS: BP 110/61
[2017-10-21] MEDS ORDERED: METOCLOPRAMIDE 5 MG/ML, 2ML IVPush ONE (03:30)
== END 2017-10-21 03:30 | disposition home or self-care (01) ==
LOC: ED 23:59
DX: N28.9 Disorder of kidney and ureter, unspecified (principal); N39.0 Urinary tract infection, site not specified; I72.9 Aneurysm of unspecified site; I10 Essential (primary) hypertension; R31.29 Other microscopic hematuria; J44.9 Chronic obstructive pulmonary disease, unspecified; I95.9 Hypotension, unspecified; E78.5 Hyperlipidemia, unspecified; K21.9 Gastro-esophageal reflux disease without esophagitis; I48.91 Unspecified atrial fibrillation
CPT/HCPCS: 36415; 74177; 80053; 81001; 83690; 85025; 87086; 96374; 99285; J2765; Q9967

== ENCOUNTER → 2018-01-02 | Outpatient (CLI) | payer MEDICARE, BC | END | disposition home or self-care (01) | LOC: WOUND 13:24 | PROVIDERS: ATTEND Family Medicine | DX: L97.211 Non-pressure chronic ulcer of right calf limited to breakdown of skin (principal); I48.2 Chronic atrial fibrillation; I10 Essential (primary) hypertension; E78.5 Hyperlipidemia, unspecified; J43.9 Emphysema, unspecified; K21.9 Gastro-esophageal reflux disease without esophagitis; M19.90 Unspecified osteoarthritis, unspecified site; Z87.891 Personal history of nicotine dependence; Z90.49 Acquired absence of other specified parts of digestive tract | CPT/HCPCS: G0463; WOU0463 ==

== ENCOUNTER → 2018-01-09 | Outpatient (CLI) | payer MEDICARE, BC ==
[~2018-01-09] MED LIST changes: -IPRA3AMP INH; +IPRA3AMP30 INH
== END | disposition home or self-care (01) ==
LOC: WOUND 13:22
PROVIDERS: ATTEND Family Medicine
DX: L97.211 Non-pressure chronic ulcer of right calf limited to breakdown of skin (principal); I48.2 Chronic atrial fibrillation; I10 Essential (primary) hypertension; J43.9 Emphysema, unspecified; K21.9 Gastro-esophageal reflux disease without esophagitis; E78.5 Hyperlipidemia, unspecified; M19.90 Unspecified osteoarthritis, unspecified site; Z90.49 Acquired absence of other specified parts of digestive tract; Z87.891 Personal history of nicotine dependence
CPT/HCPCS: 97597; 99213

== ENCOUNTER → 2018-01-15 | Outpatient (CLI) | payer MEDICARE, BC ==
[~2018-01-15] MED LIST changes: +IPRA3AMP INH; -IPRA3AMP30 INH
== END | disposition home or self-care (01) ==
LOC: WOUND 13:47
PROVIDERS: ATTEND Family Medicine
DX: L97.211 Non-pressure chronic ulcer of right calf limited to breakdown of skin (principal); I48.2 Chronic atrial fibrillation; E78.5 Hyperlipidemia, unspecified; I10 Essential (primary) hypertension; J43.9 Emphysema, unspecified; K21.9 Gastro-esophageal reflux disease without esophagitis; M19.90 Unspecified osteoarthritis, unspecified site; Z87.891 Personal history of nicotine dependence; Z90.49 Acquired absence of other specified parts of digestive tract; Z98.49 Cataract extraction status, unspecified eye; Z85.828 Personal history of other malignant neoplasm of skin
CPT/HCPCS: G0463; WOU0463

== ENCOUNTER → 2018-06-19 | Outpatient (CLI) | payer MEDICARE, BC ==
[~2018-06-19] MED LIST changes: -IPRA3AMP INH; +IPRA3AMP30 INH; +WARF1TAB PO
== END | disposition home or self-care (01) ==
LOC: CFH 13:13
PROVIDERS: ATTEND Internal Medicine Critical Care Medicine
DX: J44.9 Chronic obstructive pulmonary disease, unspecified (principal); J98.4 Other disorders of lung
CPT/HCPCS: 71046

== ENCOUNTER 2019-07-05 10:34 | Outpatient (CLI) | payer MEDICARE, BC ==
[~2019-07-05 10:34] MED LIST changes: +OXYB5TAB10 PO; -OXYB5TAB7 PO; +VORI200T2 PO
== END 2019-07-05 23:59 | disposition home or self-care (01) ==
LOC: CVU 10:34
PROVIDERS: ATTEND Family Medicine
DX: I08.3 Combined rheumatic disorders of mitral, aortic and tricuspid valves (principal); J44.9 Chronic obstructive pulmonary disease, unspecified; E78.5 Hyperlipidemia, unspecified; Z87.891 Personal history of nicotine dependence
CPT/HCPCS: 93306